=== PATIENT | female | born 1995 | race Caucasian/White ===

== ENCOUNTER 2016-11-17 20:52 | Emergency (ER) | payer MEDICAID ==
[~2016-11-17] VITALS: Ht 165.1 cm; Wt 56.0 kg
[2016-11-18] MEDS ORDERED: IBUPROFEN 600MG TABLET PO ONE (00:45)
[2016-11-18] MEDS ORDERED: BACITRACIN ZINC OINT UDPKT TOP ONE (00:45)
[2016-11-18 02:06] VITALS: BP 103/62
== END 2016-11-18 02:08 | disposition home or self-care (01) ==
LOC: ER 21:41
DX: S80.212A Abrasion, left knee, initial encounter (principal); S80.211A Abrasion, right knee, initial encounter; S09.90XA Unspecified injury of head, initial encounter; M79.644 Pain in right finger(s); W01.0XXA Fall on same level from slipping, tripping and stumbling without subsequent striking against object, initial encounter; Y08.89XA Assault by other specified means, initial encounter; Y93.89 Activity, other specified; Y92.488 Other paved roadways as the place of occurrence of the external cause
CPT/HCPCS: 70450; 73140; 73560; 81025; 99284